=== PATIENT | male | born 1980 | race Caucasian/White ===

== ENCOUNTER 2019-10-17 09:40 | Emergency (ER) | payer OTHER, SELFPAY ==
[2019-10-17 09:44] VITALS: BP 109/65; PULSE 110; RESP 20; TEMP 37.1; O2SAT 99
--- NOTE | 2019-10-17 10:19 | ED.WOUNDLAC ---
HPI - Wound/Laceration General Chief Complaint: Wound/Laceration <Sagar Kaiser MD - Last Filed: 10/17/19 10:58> Stated Complaint: arm infection? <Sagar Kaiser MD - Last Filed: 10/17/19 10:58> Time Seen by Provider: 10/17/19 10:04 <Sagar Kaiser MD - Last Filed: 10/17/19 10:58> History of Present Illness HPI narrative: Patient is a 38-year-old male who presents to the ER with infection to his right axilla. Pain increasing over the last 3 days. Noticed a casper in the axilla. Not draining. No known injury to the axillary area. No fevers or chills or sweats. No body aches. <Sagar Kaiser MD - Last Filed: 10/17/19 10:58> Related Data Allergies/Adverse Reactions: Allergies Allergy/AdvReac Type Severity Reaction Status Date / Time iohexol Allergy Severe Anaphylactic Verified 10/17/19 09:46 [From CONTRAST - CT, XRAY] Shock Contrast Media Allergy Unknown Swelling Uncoded 10/17/19 09:46 <Sagar Kaiser MD - Last Filed: 10/17/19 10:58> Review of Systems Constitutional: Constitutional: Denies chills, Denies fever(s) and Denies weakness <Sagar Kaiser MD - Last Filed: 10/17/19 10:58> ENT: Denies sore throat <Sagar Kaiser MD - Last Filed: 10/17/19 10:58> Respiratory: Respiratory: Denies cough and Denies dyspnea <Sagar Kaiser MD - Last Filed: 10/17/19 10:58> Musculoskeletal: Comments: Axillary pain <Sagar Kaiser MD - Last Filed: 10/17/19 10:58> Integumentary/Breasts: Skin/Breast: Reports erythema <Sagar Kaiser MD - Last Filed: 10/17/19 10:58> PMFSH Past Medical History Medical History: Medical History Anxiety Asthma Bipolar 1 disorder Klinefelters syndrome <Sagar Kaiser MD - Last Filed: 10/17/19 10:58> Surgical History Surgical History: Surgical History H/O umbilical hernia repair Hx of inguinal hernia repair <Sagar Kaiser MD - Last Filed: 10/17/19 10:58> Social History Social History: Social History Smoking packs per day: 1 Smoking cigarettes per day: 20.0 Smoking status: Current every day smoker Tobacco type: cigarettes Second hand tobacco smoke exposure: No Smoking end date: 04/07/09 Alcohol intake: current Substance use: current Substance use type: marijuana Gender identity (if verbalized by the patient): Male <Sagar Kaiser MD - Last Filed: 10/17/19 10:58> Exam Narrative: Exam Narrative: GENERAL: Well-appearing, well-nourished, and in no acute distress. HEAD: Normocephalic, atraumatic. ENT: Mucous membranes moist. EXTREMITIES: Normal range of motion. No edema. SKIN: Warm, dry, no rash. Small casper over the mid axillary area indicative of abscess with hair coming out of it. There is significant induration pain surrounding this which may be lymphadenopathy versus deeper space abscess, slight pink hue of the skin. NEURO: Alert and oriented x3. <Sagar Kaiser MD - Last Filed: 10/17/19 10:58> Course Course Emergency Course: Patient had I&D of abscess with wound culture obtained given antibiotic in the emergency department discharged home with outpatient follow-up provided with reasons to return patient was also given pain medication in the emergency department no complications with the procedure <Danial Ahumada PA-C - Last Filed: 10/17/19 10:45> RADIATION THERAPY TECHNOLOGIST/PA Physician Supervision For this patient encounter, I reviewed the RADIATION THERAPY TECHNOLOGIST or PA documentation, treatment plan, and medical decision making; and I had [id number] time with this patient. The rest of the evaluation was performed by this provider, PA only performed the incision and drainage and also gave discharge information. <Sagar Kaiser MD - Last Filed: 10/17/19 10:58> Vital Signs Vital signs: Vital Signs Te
[2019-10-17] MEDS: LORazepam 0.5 MG TABLET PO (10:26)
[2019-10-17] MEDS: LIDOCAINE HCL 1% LOCAL INJ 20 ML VIAL (10:29)
[2019-10-17] MEDS: DOXYCYCLINE HYCLATE 100 MG TABLET PO (11:04)
[2019-10-17] MEDS: IBUPROFEN 600 MG TABLET PO (11:04)
== END 2019-10-17 11:05 | disposition home or self-care (01) ==
PROVIDERS: Emergency Provider Emergency Medicine
DX: L02.411 Cutaneous abscess of right axilla (principal); Q98.4 Klinefelter syndrome, unspecified; F17.210 Nicotine dependence, cigarettes, uncomplicated
CPT/HCPCS: 10061; 87070; 87075; 87147; 87186; 87205; 99283; A9270

== ENCOUNTER 2020-07-12 12:37 | Outpatient (CLI) | payer OTHER, SELFPAY ==
--- NOTE | ~2020-07-12 | XR_ITS ---
XR lumbar spine 2-3V DATE: 07/12/2020 13:34 INDICATION: Fall 2 days ago. Numbness of left leg. TECHNIQUE: AP, lateral, coned lateral lumbosacral views COMPARISON: None FINDINGS: Normal alignment of the lumbar vertebrae. No fracture or bone destruction or spondylolisthe sis. The lumbar pedicles are intact. Lumbar and lumbosacral interspaces are well preserved. The sacro iliac joints are normal. IMPRESSION: Negative Reviewed, dictated and finalized at location A. IMPRESSION: Negative
--- NOTE | ~2020-07-12 | XR_ITS ---
EXAMINATION: XR shoulder LT min 2V EXAM DATE: 07/12/2020 13:35 INDICATION: Initial encounter following injury, with pain of the left shoulder. TECHNIQUE: The following left shoulder projections obtained: frontal projection with internal rotatio n, frontal projection with external rotation, Grashey, and scapular Y view (4+ views). There is no p rior study for comparison. FINDINGS: No evidence of left shoulder rotator cuff calcific tendinosis. Unremarkable left glenohu meral and acromioclavicular joints. There are no acute fractures or dislocations identified. There i s no subcutaneous gas. The soft tissue is unremarkable. There are no radiopaque foreign bodies. IMPRESSION: 1. Left shoulder exam without acute osseous findings. Reviewed, dictated and finalized at location A.
--- NOTE | ~2020-07-12 | XR_ITS ---
EXAMINATION: XR chest 2V EXAM DATE: 07/12/2020 13:34 INDICATION: Chest pain, shortness of breath and dyspnea. Fell 2 days ago. TECHNIQUE: Frontal and lateral projections of the chest obtained and reviewed. Comparison is made to prior examination from 04/09/2019. FINDINGS: Right upper lobe granuloma. The lungs are otherwise clear. There are no pleural effusions . The cardiomediastinal silhouette is within normal limits. There is no pneumothorax suspected. Th e bones and soft tissues are unremarkable. IMPRESSION: No acute cardiopulmonary findings. Reviewed, dictated and finalized at location A.
--- NOTE | ~2020-07-12 | XR_ITS ---
XR hip LT min 2V DATE: 07/12/2020 13:34 INDICATION: Left hip pain following a fall 2 days ago TECHNIQUE: AP and lateral views COMPARISON: None FINDINGS: No fracture or dislocation, avascular necrosis or bone destruction. Left hip joint space is well preserved. Normal alignment at the pubic symphysis and left sacroiliac joint. IMPRESSION: Negative Reviewed, dictated and finalized at location A. IMPRESSION: Negative
--- NOTE | ~2020-07-12 | XR_ITS ---
XR knee LT 3V DATE: 07/12/2020 13:35 INDICATION: Left knee pain following a fall 2 days ago TECHNIQUE: [place], AP and lateral views COMPARISON: None FINDINGS: No fracture or dislocation or joint effusion. Joint spaces are well preserved. No radiopaqu e intra-articular loose body or chondrocalcinosis. No periosteal reaction or bone destruction. IMPRESSION: Negative Reviewed, dictated and finalized at location A. IMPRESSION: Negative
== END 2020-07-12 12:38 | disposition home or self-care (01) ==
LOC: CHSIMG 12:40
PROVIDERS: PCP Family Medicine; Visit Provider Family Medicine
DX: R07.89 Other chest pain (principal); M25.552 Pain in left hip; M25.512 Pain in left shoulder; M54.16 Radiculopathy, lumbar region
CPT/HCPCS: 71046; 72100; 73030; 73502; 73562

== ENCOUNTER 2020-07-20 09:02 | Outpatient (RCR) | payer OTHER, SELFPAY ==
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
--- NOTE | 2020-10-02 09:38 | PCPTNOTE ---
Addendum entered by JT File, PT 10/02/20 09:38: mr. white. has not been to therapy, and will be dc'd due to poor attendance. Original Note: 10/02/20 - [facility] to feeling well. as of this date, he will be dc'd from skilled therapy services and all progress towards goals will be taken from her most recent evaluation/note.
== END 2020-08-16 10:22 | disposition home or self-care (01) ==
LOC: CHSPT 09:02
PROVIDERS: PCP Family Medicine; Visit Provider Family Medicine
DX: M54.16 Radiculopathy, lumbar region (principal); M79.605 Pain in left leg
CPT/HCPCS: 97014; 97110; 97162; G0283

== ENCOUNTER 2020-11-23 20:39 | Emergency (ER) | payer OTHER, SELFPAY ==
--- NOTE | 2020-11-23 21:25 | ED.EYEPROB ---
HPI - Eye Problem General Chief complaint: Eye Problems Stated complaint: eye injury Source: patient Mode of arrival: ambulatory Limitations: no limitations History of Present Illness HPI Narrative: Pt was using a sample grinder on some brick last . He has had watery painful eye for last 1 week. He said it has been intermittant, but more intense today. chief complaint: eye pain and eye redness Onset (ago): day(s) Onset description: sudden Duration: constant Location: right eye Eye Symptoms: redness, foreign body sensation and photophobia Severity: mild If Pain, Quality: sharp Associated symptoms: none Treatments Prior to Arrival: irrigated eye Related Data Home Medications Medication Instructions Recorded Confirmed acetaminophen 325 mg capsule 325 mg PO Q6H PRN 10/17/20 11/14/20 Allergies Allergy/AdvReac Type Severity Reaction Status Date / Time iohexol Allergy Severe Anaphylactic Verified 10/17/19 09:46 [From CONTRAST - CT, XRAY] Shock Contrast Media Allergy Unknown Swelling Uncoded 10/17/19 09:46 Review of Systems Review of Systems: All systems reviewed & are unremarkable except as noted in HPI and below PMFSH Past Medical History Medical History Anxiety Asthma Bipolar 1 disorder Klinefelters syndrome Left knee pain Surgical History Surgical History H/O right knee surgery prepatellar bursectomy 2012 H/O umbilical hernia repair Hx of inguinal hernia repair Family History Family History Mother Patient's mother is in good health Father Patient's father is in good health Social History Social History Smoking packs per day: 1 Smoking cigarettes per day: 20.0 Smoking status: Current every day smoker Tobacco type: cigarettes Second hand tobacco smoke exposure: No Smoking end date: 04/07/09 Alcohol intake: current Alcohol use details: does not drink alcohol Substance use: current Substance use type: marijuana 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 Was easily removed with wet q tip. Course Course Emergency Course: pt aware he needs to F?U with optho in am Discharge Plan Discharge Clinical Impression: Foreign body in eye Qualifiers: Encounter type: initial encounter Laterality: right Qualified Code(s): T15.91XA - Foreign body on external eye, part unspecified, right eye, initial encounter Patient Disposition: Home, Self-Care Condition: Stable Instructions: Antibiotic Form, Eye Foreign Body (ED) Additional Instructions: Use antibiotics in eye 2 drops every 4 hours. Call [facility] center at [phone] for an appointment tomorrow Prescriptions: No Action ipratropium-albuterol 0.5 mg-3 mg(2.5 mg base)/3 mL solution for nebulization 3 ml INHALATION QID PRN (Reason: shortness of breath or wheezing) Qty: 90 RF: 0 acetaminophen [Tylenol] 325 mg capsule 325 mg PO Q6H PRNRF: 0 meloxicam [Mobic] 15 mg tablet 15 mg PO DAILY Qty: 30 RF: 1 Follow-up/Referrals: Avery Winkler MD [Primary Care Provider] - Time of Disposition: 21:25
[2020-11-23 21:28] VITALS: BP 117/75; PULSE 72; RESP 20; TEMP 36.7; O2SAT 98
[2020-11-23] MEDS: CIPROFLOXACIN HCL 0.3% OP SOLN 2.5 ML BTL 2 DROP EACH EYE (21:30)
[2020-11-23 21:43] VITALS: BP 105/79; PULSE 74; RESP 20; TEMP 36.7; O2SAT 98
== END 2020-11-23 21:40 | disposition home or self-care (01) ==
PROVIDERS: Emergency Provider Emergency Medicine; PCP Family Medicine
DX: T15.91XA Foreign body on external eye, part unspecified, right eye, initial encounter (principal)
CPT/HCPCS: 99282; 99283; A9270

== ENCOUNTER 2020-12-13 15:59 | Outpatient (CLI) | payer OTHER, SELFPAY ==
--- NOTE | ~2020-12-13 | XR_ITS ---
EXAMINATION: XR skull <4V INDICATION: Possible radiopaque foreign body in the orbit TECHNIQUE: Two views of the skull are obtained. COMPARISON: None available FINDINGS: No radiopaque foreign body is identified. The left frontal sinus is hypoplastic. The parana shakira sinuses appear well-aerated. There is rightward deviation of the nasal septum. No facial fracture is identified. IMPRESSION: 1. No radiopaque foreign body identified. Reviewed, dictated and finalized at location B.
--- NOTE | ~2020-12-13 | MR_ITS ---
EXAMINATION: MR knee LT wo con DATE: 12/13/2020 17:19 INDICATION: Left knee pain. TECHNIQUE: Magnetic resonance imaging (MRI) of the left knee was performed without intravenous contra st. Sequences included axial PD-weighted FS FSE, coronal PD-weighted FSE and PD-weighted FS FSE, sagi ttal PD-weighted FSE, and sagittal T2-weighted FS FSE. COMPARISON: Left knee radiographs 07/12/2020 FINDINGS: Medial compartment: Medial meniscus is normal. Medial compartment cartilage is normal. Lateral compartment: Lateral meniscus is normal. Lateral compartment cartilage is normal. Patellofemoral compartment: Patellar cartilage is normal. Trochlear cartilage is normal. There is edema of the suprapatellar fat pad, which is nonspecific, but may be seen with impingement. Ligaments and tendons: The anterior and posterior cruciate ligaments are normal. Medial collateral ligament and lateral gilmer ateral ligament complex are normal. There is mild patellar tendinopathy. Fluid: There is a small knee joint effusion. There is mild prepatellar bursitis. IMPRESSION: 1. Small knee joint effusion. 2. Edema of the suprapatellar fat pad, which is nonspecific, but may be seen with impingement. Reviewed, dictated and finalized at location A. IMPRESSION: 1. Small knee joint effusion. 2. Edema of the suprapatellar fat pad, which is nonspecific, but may be seen wi th impingement.
== END 2020-12-13 16:00 | disposition home or self-care (01) ==
PROVIDERS: PCP Family Medicine; Visit Provider Orthopaedic Surgery
DX: M25.562 Pain in left knee (principal); M25.461 Effusion, right knee
CPT/HCPCS: 70250; 73721

== ENCOUNTER 2021-01-24 21:39 | Emergency (ER) | payer OTHER, SELFPAY ==
[2021-01-24 21:51] VITALS: BP 112/71; PULSE 81; RESP 16; TEMP 36.8; O2SAT 98
--- NOTE | 2021-01-24 22:07 | ED.GENADULT ---
HPI - General Adult General Chief complaint: Wound/Laceration Stated complaint: infection on leg Source: patient Mode of arrival: ambulatory Limitations: no limitations History of Present Illness HPI narrative: Job is a 40M with a PMH of Klinefelter's syndrome and asthma that presented to the ED with 2 red boils on his left leg. They had been there for 4 days. One popped and drained some pus and blood. They were tender. He has had these before in his arm pits. He denies any systemic symtpoms. Related Data Allergies Allergy/AdvReac Type Severity Reaction Status Date / Time iohexol Allergy Severe Anaphylactic Verified 01/24/21 22:05 [From CONTRAST - CT, XRAY] Shock Contrast Media Allergy Unknown Swelling Uncoded 10/17/19 09:46 Review of Systems Constitutional: Constitutional: Reports no additional constitutional complaints Eyes: Eyes: Reports no additional eye complaints ENT: Reports system reviewed and no additional complaints, except as documented Cardiovascular: Cardiovascular: Reports no additional cardiovascular complaints Respiratory: Respiratory: Reports no additional respiratory complaints Gastrointestinal: Gastrointestinal: Reports no additional gastrointestinal complaints Genitourinary: Genitourinary: Reports no additional male genitourinary complaints Musculoskeletal: Musculoskeletal: Reports no additional musculoskeletal complaints Integumentary/Breasts: Skin/Breast: Reports as per HPI Neurologic: Reports system reviewed and no additional complaints, except as documented Psychiatric: Psychiatric: Reports no additional psychiatric complaints Endocrine: Endocrine: Reports no additional endocrine complaints Hematologic/Lymphatic: Hematologic/Lymphatic: Reports no additional hematologic/lymphatic complaints Allergic/Immunologic: Allergic/Immunologic: Reports no additional allergic/immunologic complaints [facility] Past Medical History Medical History Anxiety Asthma Bipolar 1 disorder Klinefelters syndrome Left knee pain Surgical History Surgical History H/O right knee surgery prepatellar bursectomy 2012 H/O umbilical hernia repair Hx of inguinal hernia repair Family History Family History Mother Patient's mother is in good health Father Patient's father is in good health Social History Social History Smoking packs per day: 1 Smoking cigarettes per day: 20.0 Smoking status: Current every day smoker Tobacco type: cigarettes Second hand tobacco smoke exposure: No Smoking end date: 04/07/09 Alcohol intake: current Alcohol use details: does not drink alcohol Substance use: current Substance use type: marijuana 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, 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 Gender identity (if verbalized by the patient): Male Exam Const: General: no acute distress and alert Orientation/consciousness: patient oriented x3 Limitations: No altered mental status HENMT: Head: normal to inspection Other: normocephalic, atraumatic Eyes: Pupils: Equal, round and reactive pupils present Neck: Neck: normal visual inspection Chest: Chest palpation & inspection: normal inspection of the chest Resp: Effort & Inspection: normal respiratory effort, not labored and not tachypneic Cardio: Rate: regular rate Skin: Other: On his left lower lateral leg there were 2 round lesions that were a few mm of scab surrounded by several mm of erythema and it was indurated. Neuro: General: patient oriented x3 and moves all extremities Extrem: General: normal to inspection Psych: Appearance: grossly normal Mental Status: mental status grossly normal Course Vital Signs Vital signs: Vital Signs Temperature 98.2 F 01/24/21 21:51 Pulse Rate 81
[2021-01-24] MEDS: CLINDAMYCIN HCL 150 MG CAP 300 MG PO (22:11)
[2021-01-24 22:18] VITALS: BP 108/75; PULSE 76; RESP 16; O2SAT 98
== END 2021-01-24 22:21 | disposition home or self-care (01) ==
PROVIDERS: Emergency Provider Family Medicine; PCP Family Medicine
DX: L03.90 Cellulitis, unspecified (principal)
CPT/HCPCS: 99283; A9270

== ENCOUNTER 2021-02-21 09:57 | Outpatient (CLI) | payer OTHER, SELFPAY ==
--- NOTE | 2021-02-21 10:00 | ECG_ITS ---
Measurements Intervals [place] Rate: 62 P: 35 CA: 125 QRS: 50 QRSD: 96 T: 43 QT: 375 QTc: 381 Interpretive Statements SINUS RHYTHM INCOMPLETE RIGHT BUNDLE BRANCH BLOCK BASELINE ARTIFACT- I, III, AVR, AVL BORDERLINE ECG Electronically Signed On 02-21-2021 10:23:11 MULTIPLE PUNCH PRESS OPERATOR by Frederick Yanez D.O.
== END 2021-02-21 09:58 | disposition home or self-care (01) ==
LOC: ANHSURGERY 10:01
PROVIDERS: PCP Family Medicine; Visit Provider Orthopaedic Surgery
DX: F17.200 Nicotine dependence, unspecified, uncomplicated (principal); Z01.818 Encounter for other preprocedural examination; I45.10 Unspecified right bundle-branch block
CPT/HCPCS: 93005

== ENCOUNTER → 2021-02-23 02:35 | Outpatient (CLI) | payer OTHER, SELFPAY ==
[2021-02-23 16:36] LABS: SARS-CoV-2 RNA PCR Positive
== END ==
PROVIDERS: PCP Family Medicine; Visit Provider Orthopaedic Surgery
DX: U07.1 COVID-19 (principal)
CPT/HCPCS: C9803; U0003; U0005

== ENCOUNTER 2021-05-02 16:18 | Outpatient (CLI) | payer OTHER, SELFPAY ==
[2021-05-02 17:52] LABS: Influenza Control Valid (Valid)
[2021-05-02 18:02] LABS: SARS-CoV-2 Ag Negative (Negative)
[2021-05-02 18:41] LABS: SARS-CoV-2 RNA PCR Negative (Negative)
== END 2021-05-02 16:19 | disposition home or self-care (01) ==
LOC: CHSLAB 16:20
PROVIDERS: PCP Family Medicine; Visit Provider Family Medicine
DX: J00 Acute nasopharyngitis [common cold] (principal); Z20.822 Contact with and (suspected) exposure to COVID-19
CPT/HCPCS: 87426; 87804; C9803; U0003; U0005

== ENCOUNTER 2021-05-23 11:42 | Outpatient (CLI) | payer OTHER, SELFPAY ==
[2021-05-23 12:34] LABS: CRP 0.7 mg/dL (<1.0); Uric Acid 5.2 mg/dL (3.5-8.5)
[2021-05-23 12:35] LABS: Rheumatoid Factor < 8.6 IU/ML (<12)
[2021-05-23 12:41] LABS: Erythrocyte Sedimentation Rate 20 mm/hr (0-20)
== END 2021-05-23 11:43 | disposition home or self-care (01) ==
PROVIDERS: PCP Family Medicine; Visit Provider Orthopaedic Surgery
DX: M25.562 Pain in left knee (principal); G89.29 Other chronic pain
CPT/HCPCS: 36415; 84550; 85652; 86038; 86140; 86430

== ENCOUNTER 2021-10-29 10:47 | Outpatient (CLI) | payer OTHER, SELFPAY ==
[2021-10-29 11:20] LABS: Basophils Percent Auto 0.5 % (0.2-1.2); Eosinophils Absolute Auto 0.2 K/mm3 (0-0.3); Eosinophils Percent Auto 2.5 % (0-4.4); Hematocrit 41.5 % (42.0-52.0); Hemoglobin 13.9 g/dL (14.0-18.0); Immature Granulocyte Absolute 0.01 K/mm3 (0.00-0.031); Immature Granulocyte Percent A 0.2 % (0-0.5); Lymphocytes Absolute Auto 2.61 K/mm3 (0.9-3.2); Lymphocytes Percent Auto 42.9 % (18.3-44.2); Mean Corpuscular HGB Conc 33.5 g/dl (32-36); Mean Corpuscular Hemoglobin 29.3 pg (26-34); Mean Corpuscular Volume 87.4 fl (80-100); Mean Platelet Volume 9.8 fl (7.4-10.4); Monocytes Absolute Auto 0.4 K/mm3 (0.1-0.6); Monocytes Percent Auto 7.1 % (2.6-8.5); Neutrophils Absolute Auto 2.9 K/mm3 (1.3-6.7); Neutrophils Percent Auto 46.8 % (45.5-73.1); Platelet Count Result 293 k/mm3 (150-375); Red Blood Count 4.75 M/mm3 (4.6-6.20); Red Cell Distribution Width 12.8 % (11.5-14.5); White Blood Count 6.1 K/mm3 (4.5-10.0)
[2021-10-29 11:36] LABS: Rheumatoid Factor < 8.6 IU/ML (<12)
[2021-10-29 11:37] LABS: CRP < 0.5 mg/dL (<1.0); Uric Acid 4.3 mg/dL (3.5-8.5)
[2021-10-29 12:02] LABS: Erythrocyte Sedimentation Rate 14 mm/hr (0-20)
[2021-10-29 12:25] LABS: Band Neutrophils Percent 2 % (0-6); Lymphocytes Absolute Manual 3.35 K/mm3 (1.1-4.5); Metamyelocytes Percent 1 %; Monocytes Percent Manual 5 % (3-9); Neutrophils Absolute Manual 2.31 K/mm3 (1.3-6.7); Neutrophils Percent Manual 36 % (46-73); Plasma Cells 1; Total Cells Counted 100
[2021-10-29 12:26] LABS: Giant Platelets Present; Platelet Estimate Adequate (Adequate)
[2021-10-29 12:27] LABS: Atypical Lymphocytes Present; Crenated RBC 1+ (NORMAL)
== END 2021-10-29 10:48 | disposition home or self-care (01) ==
LOC: ANHLAB 10:49
PROVIDERS: PCP Family Medicine; Visit Provider Nurse Practitioner
DX: M25.561 Pain in right knee (principal); M25.562 Pain in left knee
CPT/HCPCS: 36415; 84550; 85025; 85652; 86038; 86140; 86430

== ENCOUNTER 2021-10-30 15:20 | Emergency (ER) | payer OTHER, SELFPAY ==
--- NOTE | ~2021-10-30 | XR_ITS ---
EXAMINATION: XR chest 1V portable INDICATION: Left-sided chest pain TECHNIQUE: Portable AP chest at 1601 hours COMPARISON: 07/12/2020 FINDINGS: The lungs are free of acute opacities. No pleural effusion or pneumothorax. The cardiomedia stinal silhouette is normal. There is a calcified granuloma of the right upper lobe. IMPRESSION: 1. No acute cardiopulmonary abnormality. Reviewed, dictated and finalized at location B.
--- NOTE | ~2021-10-30 | NM_ITS ---
EXAMINATION: NM pulmonary perfusion DATE: 10/30/2021 18:28 INDICATION: Elevated d-dimer. TECHNIQUE: 5.24 mCi Tc-99m MAA was administered intravenously for perfusion images. Scintigraphic salina ges of the chest were obtained. COMPARISON: X-ray chest, same date. FINDINGS: Perfusion images show normal perfusion. IMPRESSION: 1. Low probability for pulmonary embolism. Reviewed, dictated and finalized at location K.
[2021-10-30 15:23] VITALS: BP 107/64; PULSE 107; RESP 16; TEMP 36.5; O2SAT 99
--- NOTE | 2021-10-30 15:43 | PC.NURSE ---
Dr. Navarrete at bedside to assess pt.
--- NOTE | 2021-10-30 15:51 | ED.GENADULT ---
HPI - General Adult General Chief complaint: Shortness of Breath/Dyspnea Stated complaint: sob Time Seen by Provider: 10/30/21 15:33 History of Present Illness HPI narrative: 40-year-old male presented emerged department for evaluation of not feeling well since Friday. Patient states on Friday he had generalized fever and body aches. Patient states he went home from work on Friday but did not go to work on and Friday. Patient was home sick during the weekend and has been taking Tylenol and ibuprofen for fever and symptom control. Patient states he was having some intermittent left-sided chest wall pain. Related Data Home Medications Medication Instructions Recorded Confirmed No Home Medications 02/15/21 05/23/21 Allergies Allergy/AdvReac Type Severity Reaction Status Date / Time iohexol Allergy Intermediate Swelling Verified 10/29/21 09:55 [From CONTRAST - CT, XRAY] Iodinated Contrast Media Allergy Swelling Verified 10/29/21 09:55 Review of Systems Review of Systems: CONSTITUTIONAL: See HPI EYES: Denies visual changes, redness, or discharge. ENT: Denies rhinorrhea, congestion, sore throat, or otalgia. CARDIOVASCULAR: Left-sided chest wall pain RESPIRATORY: Denies cough or dyspnea. GASTROINTESTINAL: Denies abdominal pain, nausea, vomiting, or diarrhea. GENITOURINARY: Denies dysuria or hematuria. SKIN: Denies rash or itching. MUSCULOSKELETAL: Denies back pain, joint pain, or myalgia. NEUROLOGIC: Denies headache, numbness, or weakness. [facility] Past Medical History Medical History Anxiety Asthma Bipolar 1 disorder Klinefelters syndrome Left knee pain Surgical History Surgical History H/O right knee surgery prepatellar bursectomy 2012 H/O umbilical hernia repair Hx of inguinal hernia repair Family History Family History Mother Patient's mother is in good health Father Patient's father is in good health Social History Social History Smoking packs per day: 1 Smoking cigarettes per day: 20.0 Years smoked: 28 Smoking pack-years: 28.00 Smoking status: Current every day smoker Tobacco type: cigarettes and e-cigarettes/vaping Second hand tobacco smoke exposure: No Smoking end date: 04/07/09 Additional smoking assessment comments: PT STATES HE SWITCHED FROM CIGARETTES TO VAPE IN 2020 Alcohol intake: current Alcohol use details: does not drink alcohol Substance use: current Substance use type: marijuana Other substance usage details: 5-6 JOINTS PER DAY 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 HEAD: normocephalic, atraumatic. EYES: PERRLA/EOMI, conjunctivae clear. NOSE: Normal no drainage EARS:TMS clear with good light reflex. THROAT: Pharynx clear, no exudate. NECK: Supple. No adenopathy, no masses. RESPIRATORY: Airway patent, respirations nonlabored. Clear to auscultation bilaterally, no rales, rhonchi, wheezing. CARDIOVASCULAR: Regular rate and rhythm without murmurs rubs or gallops. ABDOMINAL: Soft, nontender, nondistended, normal bowel sounds MUSCULOSKELETAL: Moves all extremities. Strength/ROM intact, No edema, No calf tenderness. NEURO: Alert. Cranial nerves II through XII intact. Grossly intact SKIN: Warm, dry. Normal Color Course Course Emergency Course: Patient's D-dimer was elevated. Patient has a contrast dye allergy. VQ scan was low probability for pulmonary embolism. Patient did test positive for COVID. Vital Signs Vital signs: Vital Signs Temperature 97.7 F 10/30/21 15:23 Pulse Rate 107 H 10/30/21 15:23 Respira
--- NOTE | 2021-10-30 15:53 | ECG_ITS ---
Measurements Intervals [place] Rate: 68 P: 60 CA: 129 QRS: 69 QRSD: 98 T: 61 QT: 382 QTc: 407 Interpretive Statements SINUS RHYTHM BASELINE ARTIFACT- I, II, III, AVR, AVL, AVF, V1, V6 NORMAL ECG Electronically Signed On 10-30-2021 20:10:48 CDT by Frederick Yanez D.O.
--- NOTE | 2021-10-30 16:03 | PC.NURSE ---
Radiology at bedside to obtain chest xray.
[2021-10-30 16:26] LABS: Basophils Percent Auto 0.1 % (0.2-1.2); Eosinophils Absolute Auto 0.2 K/mm3 (0-0.3); Eosinophils Percent Auto 1.6 % (0-4.4); Hemoglobin 13.1 g/dL (14.0-18.0); Immature Granulocyte Absolute 0.04 K/mm3 (0.00-0.031); Immature Granulocyte Percent A 0.3 % (0-0.5); Lymphocytes Absolute Auto 2.74 K/mm3 (0.9-3.2); Lymphocytes Percent Auto 18.9 % (18.3-44.2); Mean Corpuscular Volume 90.7 fl (80-100); Mean Platelet Volume 10.2 fl (7.4-10.4); Monocytes Absolute Auto 0.6 K/mm3 (0.1-0.6); Monocytes Percent Auto 4.1 % (2.6-8.5); Neutrophils Absolute Auto 10.9 K/mm3 (1.3-6.7); Platelet Count Result 294 k/mm3 (150-375); Red Blood Count 4.52 M/mm3 (4.6-6.20); Red Cell Distribution Width 13.2 % (11.5-14.5); White Blood Count 14.5 K/mm3 (4.5-10.0)
[2021-10-30 16:34] LABS: Alanine Aminotransferase 21 U/L (6-50); Albumin Level 4.6 g/dL (3.5-5.1); Alkaline Phosphatase 62 U/L (38-126); Anion Gap 11 mmol/L (8-16); Aspartate Amino Transferase 25 U/L (17-59); Bilirubin,Total 0.5 mg/dL (0.2-1.3); Blood Urea Nitrogen 18 mg/dL (9-20); Carbon Dioxide 27 mmol/L (22-30); Chloride 105 mmol/L (98-107); Estimated CRCL calculation 115 ml/min; Estimated Glomerular Filt Rate > 60; Glucose 99 mg/dL (65-110); Potassium 3.9 mmol/L (3.4-5.0); Sodium 143 mmol/L (137-145)
[2021-10-30 16:42] LABS: D Dimer 0.49 ug/mL (<0.48)
[2021-10-30 16:43] VITALS: O2SAT 99
[2021-10-30 17:01] LABS: SARS-CoV-2 RNA PCR Positive
--- NOTE | 2021-10-30 18:15 | PC.NURSE ---
Patient off unit to unit to Nuclear Medicine
[2021-10-30 19:13] VITALS: BP 113/72; PULSE 76; RESP 18; O2SAT 99
== END 2021-10-30 19:20 | disposition home or self-care (01) ==
PROVIDERS: Emergency Provider Emergency Medicine; PCP Family Medicine
DX: U07.1 COVID-19 (principal); Q98.4 Klinefelter syndrome, unspecified; F17.290 Nicotine dependence, other tobacco product, uncomplicated
CPT/HCPCS: 71045; 78580; 80053; 85025; 85380; 87081; 87880; 93005; 99284; A9540; C9803; U0003; U0005

== ENCOUNTER 2022-01-08 14:17 | Outpatient (CLI) | payer OTHER, SELFPAY ==
[2022-01-08 15:39] LABS: Influenza A QL RT-PCR Negative (Negative); Influenza B QL RT-PCR Negative (Negative); SARS-CoV-2 RNA PCR Negative (Negative)
[2022-01-08 15:45] LABS: Strep Group A RT-PCR Not Detected (Negative)
== END 2022-01-08 14:18 | disposition home or self-care (01) ==
LOC: CHSLAB 14:19
PROVIDERS: PCP Family Medicine; Visit Provider Family Medicine
DX: J02.9 Acute pharyngitis, unspecified (principal); Z20.822 Contact with and (suspected) exposure to COVID-19
CPT/HCPCS: 87502; 87651; C9803; U0003; U0005

== ENCOUNTER 2022-04-29 18:16 | Emergency (ER) | payer OTHER, SELFPAY ==
[2022-04-29 18:20] VITALS: BP 121/65; PULSE 103; RESP 20; TEMP 37.2; O2SAT 97
--- NOTE | 2022-04-29 18:42 | ED.GENADULT ---
HPI - General Adult General Chief complaint: Skin/Abscess/Foreign Body Stated complaint: trouble hook in L hand Time Seen by Provider: 04/29/22 18:38 History of Present Illness HPI narrative: The patient is an otherwise healthy 41-year-old male who had one hook of a treble hook of a fish lure caught in his left little finger distal phalanx palmar aspect. No numbness or motor deficits. No other injuries. Last tetanus: six months ago . No other complaints. Related Data Home Medications Medication Instructions Recorded Confirmed albuterol sulfate 90 mcg/actuation 2 puff inhalation TID PRN Wheezing 04/29/22 04/29/22 aerosol inhaler Allergies Allergy/AdvReac Type Severity Reaction Status Date / Time iohexol Allergy Intermediate Swelling Verified 04/29/22 18:26 [From CONTRAST - CT, XRAY] Iodinated Contrast Media Allergy Swelling Verified 04/29/22 18:26 Review of Systems Review of Systems: All systems reviewed & are unremarkable except as noted in HPI and below Constitutional: Constitutional: Reports no additional constitutional complaints, Denies anorexia, Denies body ache(s), Denies chills, Denies excessive sweating, Denies fatigue, Denies fever(s), Denies frequent falls, Denies headache(s), Denies malaise and Denies poor appetite Eyes: Eyes: Reports no additional eye complaints, Denies blurry vision, Denies change in vision, Denies irritation, Denies itchy eyes and Denies photophobia ENT: Reports system reviewed and no additional complaints, except as documented, Reports Normal hearing present, Denies change in voice, Denies dysphagia, Denies vertigo, Denies dizziness, Denies ear discharge, Denies headache(s), Denies hearing loss, Denies hoarseness, Denies nasal congestion, Denies neck pain, Denies sinus pressure, Denies sore throat and Denies throat swelling Cardiovascular: Cardiovascular: Reports no additional cardiovascular complaints, Denies chest pain, Denies syncope, Denies rapid heart rate, Denies irregular heart rhythm, Denies leg edema, Denies dyspnea and Denies slow heart rate Respiratory: Respiratory: Reports no additional respiratory complaints, Denies cough, Denies dyspnea, Denies stridor and Denies wheezing Gastrointestinal: Gastrointestinal: Reports no additional gastrointestinal complaints, Denies abdominal pain, Denies melena, Denies hematochezia, Denies dysphagia, Denies diarrhea, Denies nausea and Denies vomiting Genitourinary: Genitourinary: Denies hematuria, Denies oliguria, Denies dysuria, Denies flank pain, Denies urinary frequency and Denies urinary urgency Musculoskeletal: Musculoskeletal: Reports no additional musculoskeletal complaints, Denies abnormal gait, Denies back pain, Denies myalgias, Denies arthralgias, Denies joint swelling, Denies limited range of motion, Denies muscle cramps, Denies muscle weakness, Denies neck pain and Denies numbness Comments: fish hook stuck in left little finger distal phalanx. Integumentary/Breasts: Skin/Breast: Reports system reviewed and no additional complaints, except as docu, Denies breast pain, Denies change in pigmentation, Denies pruritus, Denies erythema and Denies wounds Neurologic: Reports system reviewed and no additional complaints, except as documented, Reports Normal hearing present, Denies Abnormal speech present, Denies abnormal gait, Denies confusion, Denies vertigo, Denies dizziness, Denies syncope, Denies frequent falls, Denies headache(s), Denies focal weakness, Denies numbness and Denies paresthesias Psychiatric: Psychiatric: Reports no additional psychiatric complaints and Denies confusion Endocrine: Endocrine: Reports no additional endocrine complaints, Denies cold intolerance, Denies excessive sweating, Denies fatigue and Denies heat intolerance Hematologic/Lymphatic: Hematologic/Lymphatic: Reports no additional hematologic/lymphatic complaints, Denies easy bleeding and Denies easy bruising Allergic/Immunologic: Allergic/Immunologic: Reports
[2022-04-29] MEDS: LIDOCAINE HCL 1% LOCAL INJ 10 ML VIAL 20 ML INFILTRATE (18:57)
[2022-04-29] MEDS: ACETAMINOPHEN 500 MG TABLET 1000 MG PO (19:04)
[2022-04-29] MEDS: CEPHALEXIN 500 MG CAPSULE PO (19:04)
[2022-04-29] MEDS: IBUPROFEN 400 MG TABLET 800 MG PO (19:08)
--- NOTE | 2022-04-29 19:45 | PC.NURSE ---
RN applies a tube gauze bandage to pt's suture sites. Pt is able to move finger and states he still has sensation in the finger after the bandage has been applied. Pt educated on signs of infection and when to return to ED. Pt verbalized understanding.
== END 2022-04-29 20:01 | disposition home or self-care (01) ==
PROVIDERS: Emergency Provider Emergency Medicine; PCP Family Medicine
DX: S61.227A Laceration with foreign body of left little finger without damage to nail, initial encounter (principal); F17.210 Nicotine dependence, cigarettes, uncomplicated; W45.8XXA Other foreign body or object entering through skin, initial encounter
CPT/HCPCS: 99283; A9270